=== PATIENT | male | born 1955 | race Caucasian/White ===

== ENCOUNTER 2022-06-21 09:53 | Emergency (ER) | payer MEDICARE ==
[~2022-06-21] VITALS: Ht 165.1 cm; Wt 77.6 kg
[2022-06-21 10:32] LABS: BASOPHILS % (AUTO) 0.5 % (0.0-5.0); EOSINOPHILS % (AUTO) 1.5 % (0.0-8.0); HEMATOCRIT 38.9 % (42-54); LYMPHOCYTES % (AUTO) 13.6 % (21.0-51.0); MEAN CORPUSCULAR HEMOGLOBIN 31.6 pg (27.0-33.0); MEAN CORPUSCULAR HGB CONC 35.2 g/dL (32.0-36.0); MEAN CORPUSCULAR VOLUME 89.8 fL (79-99); MONOCYTES % (AUTO) 10.7 % (3.0-13.0); NEUTROPHILS % (AUTO) 73.3 % (40.0-77.0); PLATELET COUNT (AUTO) 247 K/uL (130-400); RED BLOOD CELL COUNT(AUTO) 4.33 MIL/uL (4.50-6.20); RED CELL DISTRIBUTION WIDTH 12.1 % (11.0-15.5)
[2022-06-21 10:41] LABS: CARBON DIOXIDE 29 mmol/L (21-32); CHLORIDE 92 mmol/L (101-111); CREATININE 0.8 mg/dL (0.5-1.5); GLOMERULAR FILTR. RATE CALC 103 mL/min (>60); GLUCOSE,RANDOM 102 mg/dL (70-105); POTASSIUM 3.4 mmol/L (3.5-5.1); SODIUM SERUM 126 mmol/L (136-145); UREA NITROGEN, BLOOD 10 mg/dL (7-18)
[2022-06-21 10:45] LABS: ALANINE AMINOTRANSFERASE 30 U/L (12-78); ALBUMIN 3.9 g/dL (3.5-5.0); ASPARTATE AMINOTRANSFERASE 20 U/L (10-37); CRP QUANTITATIVE < 2.00 mg/L (0.00-9.0)
[2022-06-21 11:50] LABS: ERYTHROCYTE SEDIMENTATION RATE 6 MM/HR (0-20)
[2022-06-21] MEDS ORDERED: NAPR-1180 PO (12:38)
[2022-06-21] MEDS ORDERED: TRAM-355 PO (12:38)
[2022-06-21 13:04] VITALS: BP 130/72
== END 2022-06-21 13:05 | disposition home or self-care (01) ==
LOC: EDH 09:53
DX: M06.4 Inflammatory polyarthropathy (principal); M25.562 Pain in left knee; M25.551 Pain in right hip; I10 Essential (primary) hypertension; M19.90 Unspecified osteoarthritis, unspecified site; Z87.442 Personal history of urinary calculi; Z79.1 Long term (current) use of non-steroidal anti-inflammatories (NSAID); Z79.899 Other long term (current) drug therapy
CPT/HCPCS: 36415; 73522; 73562; 80053; 85025; 85651; 86140; 87804